=== PATIENT | male | born 1940 | race Caucasian/White ===

== ENCOUNTER → 2017-07-17 | Outpatient (CLI) | payer OTHER ==
[~2017-07-17] MED LIST: ACETYLCYST200 MG/1 M PO; ASPIRIN325 PO; CARVEDILOL25 MG PO; FUROSEMIDE 40 M40 M1 PO; IRON325 PO; K-DUR10 ME1 PO; LANOXIN 0.250.25 M1 PO; LIPITOR80 MG PO; LISINOPRIL10 MG PO; PROAIR HFA8.5 GM INH; SPIRIVA INH; VITAMIN D1000 UNI1 PO
--- NOTE | ~2017-07-17 | 2DMMODE ---
[facility] [email or web address] [address] 2 D/M-MODE ECHOCARDIOGRAM Name: AMY KEBEDE [facility]: [id number] Admission: 07/17/17 Attend Phys: Devonte Connor Discharge: Date of : 36 Date of Service: 07/17/17 1543 Report #: [id number] THIS REPORT FOR: //name// APPROVED REPORT Study performed: 07/17/2017 09:02:11 EXAM: Comprehensive 2D, Doppler, and color-flow Echocardiogram Patient Location: Out-Patient Status: routine BSA: 2.15 HR: 62 bpm BP: 110/66 mmHg Rhythm: Pacemaker Other Information Study Quality: Adequate/limited parasternal window Technically limited study due to lung disease. Indications Congestive Heart Failure Pacemaker CAD Cardiomyopathy 2D Dimensions RVDd: 45.72 mm LVEF(%): 20.06 (>50%) IVSd: 11.12 (7-11mm) LVOT Diam: 21.79 (18-24mm) LVDd: 57.06 mm PWd: 8.08 (7-11mm) Ascending Ao: 33.14 (22-36mm) LVDs: 51.78 (25-40mm) Aortic Root: 33.70 mm Browning's LVEF: 20.06 % Volumes Left Atrial Volume (Systole) Single Plane 4CH: 79.82 mL Single Plane 2CH: 54.25 mL LA ESV Index: 33.00 mL/m2 Aortic Valve AoV Peak Austin.: 1.92 m/s AO Peak Gr.: 14.81 mmHg LVOT Max P.11 mmHg AO Mean Gr.: 6.98 mmHg [facility] [address] [place] [address] 2 D/M-MODE ECHOCARDIOGRAM Name: AMY KEBEDE Room #: [facility]#: [id number] Admission: 07/17/17 Attend Phys: Devonte Connor Discharge: Date of : 36 Date of Service: 07/17/17 1543 Report #: [id number] AO V2 Mean: 1.23 m/s LVOT Max V: 1.13 m/s AO V2 VTI: 38.66 cm AFSHAN Vmax: 2.19 cm2 Mitral Valve E/A Ratio: 0.6 MV Decel. Time: 428.06 ms MV E Max Austin.: 0.54 m/s MV A Austin.: 0.93 m/s MV PHT: 124.14 ms IVRT: 106.11 ms Pulmonary Valve PV Peak Austin.: 1.35 m/s PV Peak Gr.: 7.30 mmHg Pulmonary Vein P Vein S: 0.75 m/s P Vein A: 0.30 m/s P Vein D: 0.44 m/s P Vein A Dur.: 115.3 msec P Vein S/D Ratio: 1.70 Tricuspid Valve TR Peak Austin.: 2.89 m/s RAP Estimate: 5.00 mmHg TR Peak Gr.: 33.46 mmHg Left Ventricle Left ventricle is at the upper limits of normal. There is normal left ventricular wall thickness. Left ventricular systolic function is severely decreased. LVEF is 25%. Mild diastolic dysfunction is present (impaired relaxation pattern). Right Ventricle Right ventricle is mildly dilated. The right ventricular systolic function is normal. Pacemaker lead is present in the right ventricle. Atria Left atrium is mildly dilated. Right atrium is mildly dilated. Aortic Valve The Aortic valve is sclerotic. No aortic regurgitation is present. There is no aortic valvular stenosis. Mitral Valve Mitral valve leaflets are mildly calcified. Mild to moderate mitral regurgitation. No evidence of mitral valve stenosis. [facility] [address] [place] [address] 2 D/M-MODE ECHOCARDIOGRAM Name: AMY KEBEDE Room #: [id number] Admission: 07/17/17 Attend Phys: Devonte Connor Discharge: Date of : 36 Date of Service: 07/17/17 1543 Report #: [id number] Tricuspid Valve The tricuspid valve is normal in structure. Mild tricuspid regurgitation. Estimated PAP is 40mmHg. Pulmonic Valve Pulmonic valve is not well visualized. Mild pulmonic regurgitation. Great Vessels The aortic root is normal in size. The ascending aorta is normal in size. IVC is normal in size and collapses >50% with inspiration. Pericardium There is no pericardial effusion. <Conclusion> Left ventricle is at the upper limits of normal. LVEF is 25%. Right ventricle is mildly dilated. The right ventricular systolic function is normal. Pacemaker lead is present in the right ventricle. Left atrium is mildly dilated. Right atrium is mildly dilated. The Aortic valve is sclerotic. Mitral valve leaflets are mildly calcified. Mild to moderate mitral regurgitation. The tricuspid valve is normal in structure. Mild tricuspid regurgitation. Estimated PAP is 40mmHg. Pulmonic valve is not well visualized. Mild pulmonic regurgitation. There is no pericardial effusion. <ELECTRONICALLY SIGNED> By: Jeramy Rodríguez MD 07/17/17 1543 1543 1543 Jeramy Rodríguez MD /INF
== END ==
LOC: CV 07:32 → RAD 09:40 → CV 09:40
DX: I25.10 Atherosclerotic heart disease of native coronary artery without angina pectoris (principal); E78.5 Hyperlipidemia, unspecified; R09.02 Hypoxemia; Z88.4 Allergy status to anesthetic agent

== ENCOUNTER 2018-07-22 11:55 | Inpatient (IN) | payer OTHER ==
[~2018-07-22] VITALS: Ht 180.3 cm; Wt 102.7 kg
[2018-07-22] VITALS (23 sets, daily range): BP systolic 64–102; BP diastolic 27–81
--- NOTE | ~2018-07-22 | HC ---
[facility] [place] [address] CONSULTATION Name: AMY KEBEDE Room #: 244-P ADM IN M.R.#: [id number] Admission: 07/22/18 ������������������ Attend Phys: Hayder Whitney MD Discharge: ������������������ Date of : 38 Report #: [id number] THIS REPORT FOR: //name// CC: GREG physician/PCP Hayder Whitney DATE OF SERVICE: 07/22/2018 REASON FOR CONSULTATION: Acute hyperkalemia and acute kidney injury on top of chronic kidney disease. HISTORY OF PRESENT ILLNESS: This is an 78-year-old male who has the chronic diagnoses of chronic kidney disease, ischemic cardiomyopathy as well as some COPD. He has an indwelling permanent pacemaker. He is on the medications as listed below. He was due to see one of my partners, Dr. Alcides Bishop, in the office next week, so he went in 2 days ago and has labs drawn. Those labs showed some dramatic abnormalities including a potassium of 7.2 and a creatinine of 5.1. When those came to the lab, he was instructed by Dr. Heart to come to the Emergency Room to have it evaluated. Upon arrival to the Emergency Room today, his creatinine level was up to 6.4, and his potassium level was at 6.9. He was treated for his potassium in the Emergency Room. Since that time, we had a repeat, and it was down to 6.2. Creatinine level is down to 5.7. The patient is a very sketchy historian. He lives alone and is rather lethargic. He says he has been sick for the past 6-7 weeks, dating back to the middle of June. During that time, he has had intermittent nausea, some vomiting and intermittent diarrhea. It sounds like this started as an acute illness as one would expect with a GI viral illness and that started to improve. Subsequent to that, he has had intermittent symptoms. He states he still has intermittent diarrhea as well as the nausea and vomiting. Intake of food and fluids has been diminished. He states he passes urine, maybe, about once a day in the morning. He has had no problem voiding urine and no symptoms to suggest obstruction. He has not been taking any nonsteroidals. He says he is taking all of his other chronic medications. He says he has been weak, unable to carry out many of his usual activities around the house due to weakness. He specifically denies lightheadedness or dizziness. No chest pain or palpitations. He states that he saw both Dr. Rodríguez and Dr. Lamberto Herrera in their respective offices a week or so ago for followup of his chronic problems. He does not recall anything being mentioned of hypotension at that time. He is unaware of fevers, chills or sweats. He has not had recent edema. PAST MEDICAL HISTORY: Longstanding chronic kidney disease stage 3, runs a baseline creatinine in the 1.4-1.6 range. He has ischemic cardiomyopathy with a low ejection fraction in the 30% range. He has the permanent pacemaker. He has some hyperlipidemia. He also has some COPD. HOME MEDICATIONS: Include aspirin 325 mg daily, atorvastatin 80 mg daily, [address] [address] CONSULTATION Name: AMY KEBEDE Room #: 244-P ADM IN M.R.#: [id number] Admission: 07/22/18 ������������������ Attend Phys: Hayder Whitney MD Discharge: ������������������ Date of : 38 Report #: [id number] carvedilol 25 mg b.i.d., furosemide 40 mg daily, Entresto 41/51 mg daily, spironolactone 25 mg daily, Stiolto inhaler, vitamin D 1000 units daily and some iron 325 mg daily. ALLERGIES: TOPICAL LIDOCAINE WHICH CAUSED A RASH. FAMILY HISTORY: Noncontributory. SOCIAL HISTORY: The patient is single, lives in [place], [place]. He is retired. He lives alone in a house. REVIEW OF SYSTEMS: Mainly positive for those symptoms mentioned in the history of present illness. He thinks he has lost some weight, but he has not weighed himself. His appetite has been down as noted above. He had the nausea, vomiting, diarrhea intermittently also as noted above. He reports no dysuria. Urine output is down, says his urine is somewhat dark. He has noticed no hematuria. No flank pain. No pain over the bladder. He has not had recent edema. Denies myalgias, arthralgias. No nonsteroidal use. He is very weak as noted above. PHYSICAL EXAMINATION: GENERAL: Acutely and chronically ill-appearing male, seen in the Intensive Care Unit. VITAL SIGNS: Blood pressure 82/31. As I talked to him it stephanie to about 90/40, heart rate 45 and fully paced. Oxygen saturation 96%, respiratory rate 18. HEENT: Shows pupils are 3 mm and reactive. Sclerae nonicteric. Oral mucosa is parched. NECK: Veins are not distended. No adenopathy, no bruits. CHEST: Clear bilaterally. BACK: Shows no CVA tenderness. CARDIOVASCULAR: Heart has a paced bradycardia, very distant heart tones. ABDOMEN: Has active bowel sounds, is not distended and is nontender, cannot palpate organomegaly or masses. Bladder is not distended by palpation or percussion. EXTREMITIES: Show no peripheral edema. Extremities are warm, absent pedal pulses. PERTINENT LABORATORY DATA: From presentation in the Emergency Room, sodium 137, potassium 6.9, chloride 104, bicarbonate 19, BUN 128, creatinine 6.1, glucose 120, calcium 8.7, phosphorus 6.2, total protein 6.7, albumin 3.4, total bilirubin 0.3, AST of 11, ALT of 24. White count 7.9, hemoglobin 9.7, hematocrit 29.0, platelets 128,000, 73 neutrophils, 12 lymphs, 11 monos, 3 eosinophils. TSH 0.389. Urinalysis, specific gravity of 1.020, pH 5.5, 6-15 white cells, 1-9 bacteria, no blood. I reviewed his chest x-ray, shows some chronic changes about his lung hadley. [facility] [address] [place] [address] CONSULTATION Name: YANDYAMY Room #: 244-P ADM IN .R.#: [id number] Admission: 07/22/18 ������������������ Attend Phys: Hayder Whitney MD Discharge: ������������������ Date of : 38 Report #: [id number] No magi infiltrate that I see. No signs of heart failure at this time. ASSESSMENT: 1. Hyperkalemia, which is critical when he presented. It was treated in the Emergency Room. It started to come down. It should come down further with additional volume replacement and a better blood pressure, improved renal function. At this point, we certainly need to hold his Entresto and his spironolactone as both would be creating problems from a potassium standpoint. Decision to restart those down the line will need to be considered. 2. Acute kidney injury. This is severe. He is very hypotensive on presentation, looks very volume deplete. Again, he is on massive doses of medications as noted above. I suspect he has been hypotensive for some time. What I do not know and we may never know based upon the patient's history is whether all this started 4-6 weeks ago when he had his first symptoms in June and did not seek any medical attention or whether this has been a more recent acute change. It certainly could be a combination of both things with the more long-term changes starting a month or even 6 weeks ago, getting worse again recently. With his profound hypotension, he needs to be off all of his carvedilol, Entresto, furosemide and spironolactone. We have been giving him a fair amount of fluid, and he has gotten about 2 liters so far. I think we can slow down rate, but given some additional IV fluid to get that pressure up. He certainly has no signs of volume overload at this time. 3. Chronic ischemic cardiomyopathy with a low ejection fraction. He saw Dr. Rodríguez and is due for a followup echocardiogram. He certainly could have had a worsening over that time. I would note he has no symptoms suggesting acute ischemic heart changes. 4. Chronic pacemaker. It is running too slow at only 45 beats per minute. It needs to be speeded up by Cardiology. The RN in the ICU reports that Cardiology has been notified. 5. Chronic obstructive pulmonary disease. Oxygenating adequately at this time. PLAN: 1. Hold all medications as noted above. 2. We will continue IV fluids, normal saline at 250 mL an hour overnight. 3. Continue to watch blood pressure closely. 4. Check fractional excretion of sodium. 5. He has trouble voiding. We will check a bladder scanner, but I do not think there is any obstructive component. 6. Follow up labs in the morning. 7. We will follow along closely in the care of this patient. ��������������������������������������������� ���������������������������������������� By: ��������������������������������������������� [phone] Lamberto Bird MD /scott
[2018-07-22 12:36] LABS: URINE BILIRUBIN NEGATIVE (Negative); URINE BLOOD NEGATIVE (Negative); URINE CLARITY CLEAR; URINE COLOR YELLOW; URINE GLUCOSE-RANDOM* NEGATIVE (Negative); URINE KETONES NEGATIVE (Negative); URINE NITRITE-REFLEX NEGATIVE (Negative); URINE PROTEIN (DIPSTICK) NEGATIVE (Negative); URINE UROBILINOGEN 0.2 E.U./dl (0.2-1.0)
[2018-07-22 12:49] LABS: URINE LEUKOCYTES-REFLEX 1+ (Negative)
[2018-07-22 13:02] LABS: BACTERIA-REFLEX 1-9 Few /HPF (None Seen); CASTS None Seen /LPF (None Seen); CRYSTALS None Seen /LPF (None Seen); MUCUS 0-3 Light strn/LPF (None Seen); SQUAMOUS 0-3 Few /LPF (0-3); URINE RBC None Seen /HPF (0-2); URINE WBC-REFLEX 6-15 Few /HPF (0-5)
[2018-07-22 13:08] LABS: HEMOGLOBIN 9.7 gm/dL (14.0-18.0); MCH 32.5 pg (26.0-34.0); MCHC 33.4 g/dL (28.0-37.0); MCV 97.4 fL (80.0-100.0); RBC 2.98 mil/uL (4.50-6.00); RDW 14.1 % (10.5-14.5); WBC 7.9 thou/uL (4.0-11.0)
[2018-07-22 13:23] LABS: ALBUMIN 3.4 g/dL (3.4-5.0); CALCIUM 8.7 mg/dL (8.5-10.1); CREATININE 6.1 mg/dL (0.7-1.3); DIRECT BILIRUBIN 0.1 mg/dL (<0.1-0.3); MAGNESIUM 1.9 mg/dL (1.8-2.4); PHOSPHORUS 6.2 mg/dL (2.5-4.9); TOTAL BILIRUBIN 0.3 mg/dL (<0.1-1.0); TOTAL PROTEIN 6.7 g/dL (6.4-8.2)
[2018-07-22 13:28] LABS: POTASSIUM 6.9 mmol/L (3.5-5.1)
[2018-07-22 13:30] LABS: ABSOLUTE NEUTROPHILS 5.8 thou/uL (1.4-8.2); ANISOCYTOSIS 1+; BURR CELLS FEW; LARGE PLATELETS OCCASIONAL; OVALOCYTES 1+; PLATELET ESTIMATE NORMAL; POIKILOCYTOSIS 1+
[2018-07-22 13:31] LABS: PLATELET COUNT 128 thou/uL (150-400)
[2018-07-22 15:09] LABS: ALBUMIN 3.3 g/dL (3.4-5.0); CALCIUM 8.7 mg/dL (8.5-10.1); CREATININE 6.4 mg/dL (0.7-1.3); PHOSPHORUS 6.4 mg/dL (2.5-4.9)
[2018-07-22 15:15] LABS: POTASSIUM 6.9 mmol/L (3.5-5.1)
[2018-07-22] MEDS ORDERED: ENTRESTO 49 MG1 EACH PO (15:25)
[2018-07-22] MEDS ORDERED: STIOLTO RESPIMAT4 GM INH (15:25)
[2018-07-22] MEDS ORDERED: SPIRONOLACTONE25 MG PO (15:27)
[2018-07-22 15:37] LABS: TSH 0.389 uIU/mL (0.358-3.740)
[2018-07-22 17:05] LABS: CALCIUM 8.6 mg/dL (8.5-10.1); CREATININE 5.7 mg/dL (0.7-1.3)
[2018-07-22 17:07] LABS: POTASSIUM 6.2 mmol/L (3.5-5.1)
--- NOTE | 2018-07-22 17:19 | EKG ---
[place] [address] [email or web address] [place] [address] ELECTROCARDIOGRAM REPORT Name: AMY KEBEDE Room #: 170-10 ADM IN M.R.#: [id number] ������������������ Admission: 07/22/18 ������������������ Attend Phys: Hayder Whitney MD Discharge: ������������������ Date of : 36 Report #: [id number] ����������������������������������������������������������������� [id number] THIS REPORT FOR: //name// [facility] ED Test Date: 2018-07-22 Test Time: 12:39:49 Pat Name: AMY KEBEDE Department: Room: 170 Gender: M Respiratory Physician: PHILIPPE : 1940 Requested By: Vimal Tapia Order Number: [id number] MD: Angel Hodges Measurements Intervals [place] Rate: 45 P: HI: QRS: -67 QRSD: 186 T: 129 QT: 486 QTc: 421 Interpretive Statements Afib/flutter and ventricular-paced rhythm No further analysis attempted due to paced rhythm No previous ECGs available for comparison Electronically Signed On 07-22-2018 17:19:23 CDT by Angel Hodges [email or web address] ��������������������������������������������� <ELECTRONICALLY SIGNED> ���������������������������������������� By: Angel Hodges MD, [facility] ��������������������������������������������� 07/22/18 1719 1239 1239 Angel Hodges MD, FACC /EPI
--- NOTE | 2018-07-22 19:17 | NUR ---
PATIENT ADMITTED FROM ER DEPARTMENT. ALERT AND ORIENTED X4, NO COMPLAINTS OF PAIN. HARD OF HEARING. ON ROOM AIR, WEARS 4L AT NIGHT. UP WITH MINIMAL ASSISTANCE. SINUS BRADYCARDIA/PACED ON PRODUCTION SUPERVISOR TRAINEE. BLOOD PRESSURE SYSTOLICLY 60'S, DR. [place] NOTIFIED, NEW ORDERS RECIEVED. PATIENT UPDATED ON THE PLAN OF CARE. NO SIGNS OF ACUTE DISTRESS NOTED AT THIS TIME. WILL CONTINUE TO MONITOR.
[2018-07-22 23:13] LABS: URINE CREATININE-RANDOM* 146.6 mg/dL
[2018-07-23] VITALS (31 sets, daily range): BP systolic 72–134; BP diastolic 22–101
[2018-07-23 05:18] LABS: HEMATOCRIT 26.6 % (42.0-52.0); HEMOGLOBIN 8.6 gm/dL (14.0-18.0); MCH 31.7 pg (26.0-34.0); MCHC 32.2 g/dL (28.0-37.0); MCV 98.4 fL (80.0-100.0); PLATELET COUNT 106 thou/uL (150-400); RDW 14.2 % (10.5-14.5); WBC 6.5 thou/uL (4.0-11.0)
[2018-07-23 05:28] LABS: ALBUMIN 2.5 g/dL (3.4-5.0); CALCIUM 8.2 mg/dL (8.5-10.1); MAGNESIUM 1.6 mg/dL (1.8-2.4); PHOSPHORUS 5.7 mg/dL (2.5-4.9)
[2018-07-23 05:33] LABS: POTASSIUM 6.3 mmol/L (3.5-5.1)
[2018-07-23 06:13] LABS: ABSOLUTE NEUTROPHILS 4.7 thou/uL (1.4-8.2)
[2018-07-23 06:16] LABS: ANISOCYTOSIS 1+; LARGE PLATELETS FEW; PLATELET ESTIMATE DECREASED; POLYCHROMASIA 1+
--- NOTE | 2018-07-23 06:29 | NUR ---
PT AOX4. ON 4L NC AT NIGHT. DENIES SOA. DENIES PAIN. BP ON THE LOW SIDE, DR. SUMMERS AWARE. AFEBRILE. VPACED ON THE MONITOR. SOTO PLACE, PT RETAINING URINE. CRITICAL POTASSUIM COMMUNICATED TO DR. LOVE. NO COMPLAINS PRESENTLY. WILL CONTINUE TO MONITOR.
--- NOTE | 2018-07-23 16:53 | NUR ---
met with patient who is A/Ox4. reports he lives alone in home all needs on one level. Patient admits with abnormal labs. He reports he has no PCP. He does see Dr Bishop nephrology. He reports no family or assistance. His emergency contact is his neighbor. He is unsure if his neighbor knows he is here at hospital. He does not think number is correct as given. He reports his cell phone at home. Patient may benefit from care at nm. Patient reports increase weakness since Jun and requested his neighbor help with grocery shopping. 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 He has a cane to use as needed. He reports nocturnal oxygen 4 liters at home serviced by [employer] [place]. Therapy evals in process casemgt following.
--- NOTE | 2018-07-23 18:01 | EKG ---
[address] [place] [address] ELECTROCARDIOGRAM REPORT Name: AMY KEBEDE Room #: 244- ADM IN M.R.#: [id number] ������������������ Admission: 07/22/18 ������������������ Attend Phys: Hayder Whitney MD Discharge: ������������������ Date of : 38 Report #: [id number] ����������������������������������������������������������������� [id number] THIS REPORT FOR: //name// [facility] Test Date: 2018-07-23 Test Time: 07:37:35 Pat Name: AMY KEBEDE Department: Room: 244 Gender: M Displayer Merchandise: DEANDRE : 1940 Requested By: Hayder Whitney Order Number: [id number] MD: Angel Hodges Measurements Intervals [place] Rate: 45 P: 0 NH: 48 QRS: -78 QRSD: 169 T: 121 QT: 487 QTc: 422 Interpretive Statements Ventricular-paced rhythm No further analysis attempted due to paced rhythm Compared to ECG 07/22/2018 12:39:49 no significant change was found Electronically Signed On 07-23-2018 18:01:10 CDT by Angel Hodges [email or web address] ��������������������������������������������� <ELECTRONICALLY SIGNED> ���������������������������������������� By: Angel Hodges MD, [facility] ��������������������������������������������� 07/23/18 180 6 6 Angel Hodges MD, [facility] /EPI
--- NOTE | 2018-07-23 18:35 | NUR ---
PATIENT ALERT AND ORIENTED X4, NO COMPLAINTS OF PAIN. ON ROOM AIR. PACED ON INVERTER AND CLIPPER. TOLERATING DIET WELL. SOTO PATENT AND DRAINING. PLAN OF CARE DISCUSSED WITH PATIENT, VERBALIZED UNDERSTANDING. NO SIGNS OF ACUTE DISTRESS NOTED AT THIS TIME. WILL CONTINUE TO MONITOR.
[2018-07-24] VITALS (24 sets, daily range): BP systolic 72–105; BP diastolic 21–56
--- NOTE | 2018-07-24 05:36 | NUR ---
PT AOX4. 4L O2 NC, AT HS. NO PAIN. SOTO IN PLACE, OUTPUT NOTED. IV FLUIDS INFUSING. VTACH ON MONITOR. BP LOW DURING THE NIGHTS, PHYSICIANS AWARE. WILL CONTINUE TO MONITOR. PT SLOWLY PROGRESSING TOWARDS GOALS.
[2018-07-24 07:29] LABS: ALBUMIN 2.5 g/dL (3.4-5.0); CALCIUM 7.9 mg/dL (8.5-10.1); PHOSPHORUS 5.1 mg/dL (2.5-4.9); POTASSIUM 5.8 mmol/L (3.5-5.1)
[2018-07-24 07:32] LABS: CREATININE 3.6 mg/dL (0.7-1.3)
[2018-07-25] VITALS (24 sets, daily range): BP systolic 80–107; BP diastolic 32–84
[2018-07-25 05:01] LABS: ALBUMIN 2.2 g/dL (3.4-5.0); CALCIUM 7.9 mg/dL (8.5-10.1); CREATININE 2.9 mg/dL (0.7-1.3); PHOSPHORUS 4.4 mg/dL (2.5-4.9); POTASSIUM 5.5 mmol/L (3.5-5.1)
--- NOTE | 2018-07-25 08:05 | NUR ---
END OF SHIFT SUMMARY: Pt slowly progressing toward goals. Had very restful night; monitor remained primarily V-paced at 60, occasionally AV paced. Pt on 4 liter nasal canula, sat remained > 95%. No c/o of SOA until early this a.m. around 0630, sat still remained > 95% but pt slightly more tachypnic in mid 20's. Urine output adequate.
[2018-07-25 12:17] LABS: BE(vivo) -14.2 mmol/L (-2 to +3); HCO3 15.3 mmol/L (22.0-26.0); PCO2 51.9 mmHg (35.0-45.0); PO2 149.3 mmHg (80.0-100.0)
[2018-07-25 12:18] LABS: pH 7.087 (7.360-7.450)
[2018-07-25 15:37] LABS: BE(vivo) -13.8 mmol/L (-2 to +3); HCO3 14.1 mmol/L (22.0-26.0); PCO2 40.7 mmHg (35.0-45.0); PO2 130.4 mmHg (80.0-100.0); sO2 97.8 % (92.0-98.0)
[2018-07-25 15:38] LABS: pH 7.158 (7.360-7.450)
--- NOTE | 2018-07-25 17:03 | NUR ---
SUMMARY: PATIENT ALERT AND ORIENTED. VITALS STABLE AND HAS DENIED PAIN. UP TO THE CHAIR EARLIER TODAY. SHORTNESS OF AIR WITH ACTIVITY AND AT TIMES MARGINALLY HYPOTENSIVE. ABG RESULTS CALLED TO DR. SCHOFIELD THIS AFTERNOON, ORDERS RECEIVED FOR BIPAP AND PULMONARY CONSULT. STARTED ON BICARB GTT. WILL CONTINUE TO MONITOR.
--- NOTE | 2018-07-25 18:23 | NUR ---
PATIENT AWAKENED FROM NAP THIS EVENING, RIPPED BIPAP OFF HIS FACE, RT TRIED TO PUT IT BACK ON BUT PATIENT REFUSED, ALSO REFUSED NASAL CANNULA. I TRIED TO TALK PATIENT IN USING O2 BUT REFUSED. DR. ALEGRIA CAME BY AND TALKED WITH PATIENT BUT PATIENT STILL DID NOT WANT ANY O2, SATURATIONS 92-94% ON ROOM AIR. DR. ALEGRIA ORDERED ONE DOSE OF HALDOL AND WAS OK TO GIVE PATIENT BREAK FROM BIPAP AND CANNULA. PATIENT REFUSED DINNER. FELL ASLEEP AFTER DOSE OF HALDOL.
[2018-07-26] VITALS (15 sets, daily range): BP systolic 88–123; BP diastolic 33–66
[2018-07-26 05:21] LABS: HEMATOCRIT 29.8 % (42.0-52.0); HEMOGLOBIN 9.8 gm/dL (14.0-18.0); MCH 32.5 pg (26.0-34.0); MCV 98.5 fL (80.0-100.0); RBC 3.03 mil/uL (4.50-6.00); RDW 14.9 % (10.5-14.5); WBC 5.8 thou/uL (4.0-11.0)
--- NOTE | 2018-07-26 05:28 | NUR ---
PT HAS RESTED OFF AN ON THROUGHOUT THE SHIFT. PT RHYTHM IRREGULAR. AT TIMES VPACED AT RATE 60 OTHER TIMES WILL APPEAR 120S THEN ALSO 30S, VERY INCONSISTENT. WILL PLACE CALL TO LAYBOY OPERATOR ALEXANDRA KELLY TO DISCUSS. PT RADIAL PULSE CHECK CONFIRMS LOW 60S. PT PURSED LIP BREATHING AT TIMES WAS COOPERATIVE TO RECEIVING 2 RT TREATMENTS DURING THIS SHIFT BUT STILL REFUSING TO WEAR OXYGEN OR PUT BIPAP ON CURRENT O2 SAT 94%. PT AM LABS DRAWN AND PENDING RESULT TO REVIEW. PT CONTINUES WITH BICARB GTT. PT AFEBRILE. PT HAS HAD A WEIGHT GAIN OF ABOUT 10 LBS SINCE YESTERDAY AND IS MORE EDEMATOUS.
[2018-07-26 05:42] LABS: ALBUMIN 2.4 g/dL (3.4-5.0); CALCIUM 8.4 mg/dL (8.5-10.1); CREATININE 2.6 mg/dL (0.7-1.3); PHOSPHORUS 3.2 mg/dL (2.5-4.9); POTASSIUM 5.3 mmol/L (3.5-5.1)
--- NOTE | 2018-07-26 06:31 | NUR ---
SPOKE TO ALEXANDRA KELLY REGARDING PACER IRREGULARITY AND PT WT GAIN AND SOUNDING COARSE, PT BRINGING UP SPUTUM. SHE LOOKED OVER NOTES WHILE ON THE PHONE AND SAID TO HAVE DAY SHIFT RN TALK TO RENAL AND CARDIOLOGY WHEN THEY ROUND ON PT TODAY TO DETERMINE FURTHER PLAN OF ACTION FOR PT. PT HAS BEEN ASYMPTOMATIC WITH PACER IRREGULARITY AND DOES NOT MATCH UP TO RADIAL PULSE PALPATED.
--- NOTE | 2018-07-26 08:30 | NUR ---
PT ALERT AND ORIENTED X4, INCREASINGLY SHORT OF BREATH AT REST, DISCUSSED WITH PT GOALS OF CARE AND CODE STATUS. PT WISHES TO BE A NO CODE. TANI RN SECOND NURSE TO VERIFY THAT PT IS ALERT AND ORIENTED X4 AND CURRENT CODE WISHES. PATIENT PROVIDED A LIST OF NAMES AND PERSONS TO NOTIFY IF HE BECOMES UNRESPONSIVE OR . PT REPORTS NO IMMEDIATE FAMILY. THIS LIST IS LOCATED IN PATIENTS CHART. DR. SCHOFIELD PAGECompa FOR DNR ORDERS, REPORTED PT NEURO STATUS AND NO CODE WISHES. RECIEVED ORDERS VIA TELEPHONE- NO CODE.
[2018-07-27] VITALS (10 sets, daily range): BP systolic 90–113; BP diastolic 46–81
--- NOTE | 2018-07-27 04:40 | NUR ---
PT CURRENTLY RESTING COMFORTABLE IN BED. ABLE TO GET SOME GOOD SLEEP THIS SHIFT. PT REQUIRED ONE DOSE OF PAIN MEDICATION DURING THE NIGHT. PT CONTINUES ON 4L NC SATS >93% PT HAS HAD A FEW BREATHING TREATMENTS THROUGHOUT SHIFT. PT AM LABS TO BE DRAWN.
[2018-07-27 06:08] LABS: ALBUMIN 2.9 g/dL (3.4-5.0); CALCIUM 8.6 mg/dL (8.5-10.1)
--- NOTE | 2018-07-27 10:44 | NUR ---
FOLLOWING FOR DC PLANNING. CLINICAL INFO REVIEWED AND DISCUSSED WITH DR. SCHOFIELD WHO STATES HE TALKED TO PT ABOUT HIS CONDITION AND PT IS AGREEABLE TO STOPPING AGGRESSIVE TREATMENT. MET WITH PT WHO IS ALERT AND ORIENTED X4. REVIEWED HOSPITLAIZATION AND TREATMENT. PT CONFIRMS DISCUSSION WITH DR. SCHOFIELD DIRECTIVE FOR DNR NOW. DISCUSSED HOSPICE PHILOSOPHY OF CARE AND PTS BENEFITS. PT IS AGREEABLE TO HOSPICE EVAL WITH HOSPICE AGENCY THAT HAS INPT CAPABILITY. REVIEWED [facility], [facility] AND PT CHOSE HOSPICE. COMPLETED OUTSIDE HOSPITAL DNR FORM WITH PT AND REFERRAL FAXAED TO HOSPICE AND CASANDRA FISH WILL BE HERE AT NOON TO EVAL AND MEET WITH PT.
--- NOTE | 2018-07-27 17:10 | NUR ---
PATIENT ALERT AND ORIENTED X4, NO COMPLAINTS OF PAIN. ON 4L NASAL CANNULA, SHORTNESS OF BREATH WITH INCREASED ACTIVITY. PACED ON DELIVERY STOCK CLERK. SOTO PATENT, ON IV LASIX DRIP. PATIENT UPDATED ON THE PLAN OF CARE. NO SIGNS OF ACUTE DISTRESS NOTED AT THIS TIME. WILL CONTINUE TO MONITOR.
--- NOTE | 2018-07-27 19:27 | NUR ---
REPORT CALLED TO ONCOMING NURSE ON , AWAITING TRANSPORT.
--- NOTE | 2018-07-27 20:15 | NUR ---
Pt remain stable. Left IVU via bed, monitors and transported by me to room 452. All belonging are sent to his room. I have attempted to notify his authorize account contact associate regarding of this pt w/o any success. Phone number that he provided was incorrect. Notify his nurse on regarding of above.
[2018-07-28 03:36] VITALS: BP 98/66
--- NOTE | 2018-07-28 04:28 | NUR ---
Pt. was an icu transfer at the beginning of the shift. He has rested quietly and offers no complaints. Continues on lasix gtt with adequate urinary output. Has bilateral lower and upper extremity edema. He offers no c/o shortness of air. Bed alarm is on.
[2018-07-28 06:23] LABS: ALBUMIN 2.9 g/dL (3.4-5.0); CALCIUM 8.8 mg/dL (8.5-10.1); PHOSPHORUS 4.8 mg/dL (2.5-4.9); POTASSIUM 5.9 mmol/L (3.5-5.1)
[2018-07-28 08:28] VITALS: BP 93/55
[2018-07-28] MEDS ORDERED: VELTASSA8.4 GM PO (12:16)
[2018-07-28] MEDS ORDERED: LASIX 40 MG TAB40 M2 PO ×2 (12:25→13:03)
[2018-07-28 15:26] VITALS: BP 96/60
--- NOTE | 2018-07-28 15:26 | NUR ---
[place] WITH HOSPICE VISITED WITH PT THIS MORNING AND INDICATED THAT PT WAS APPROPRIATE FOR ADMISSION FOR HOSPICE HOUSE THIS DAY. OUTSIDE THE HOSPITAL DNR FORM WAS COMPLETED. COMPANY WAS CONTACTED TO DEACTIVATE PT'S PACEMAKER. [facility] TRANSPORT WAS ARRANGED FOR 1630. CM CALLED AND NOTIFIED KB AT THE HOSPICE HOUSE. PT IS AWARE AND AGREEABLE. NURSE IS TO CALL REPORT. NO OTHER CM INTERVENTION INDICATED AT THIS TIME. CASE CLOSED.
--- NOTE | 2018-07-28 17:34 | NUR ---
PT STABLE THROUGHOUT SHIFT. PT DISCHARGED TO HOSPICE. REPORT CALLED, PT LEFT UNIT VIA FD.
== END 2018-07-28 18:00 | disposition hospice, home (50) | DRG 682 ==
LOC: ER 11:55 → ICU 14:09 → EROBS 14:09 → 4W 14:09 → ICU 17:23 → 4W 07-27 20:25
PROVIDERS: Emergency Medicine; Hospitalist; Internal Medicine Nephrology; Nurse Practitioner; ADMIT Internal Medicine
PROC: 5A09357 Assistance with Respiratory Ventilation, Less than 24 Consecutive Hours, Continuous Positive Airway Pressure (ICD-10-PCS; principal; 2018-07-25)
DX: N17.9 Acute kidney failure, unspecified (principal); J96.21 Acute and chronic respiratory failure with hypoxia; I50.23 Acute on chronic systolic (congestive) heart failure; I38 Endocarditis, valve unspecified; I13.2 Hypertensive heart and chronic kidney disease with heart failure and with stage 5 chronic kidney disease, or end stage renal disease; E87.5 Hyperkalemia; E78.5 Hyperlipidemia, unspecified; I25.5 Ischemic cardiomyopathy; J44.9 Chronic obstructive pulmonary disease, unspecified; I25.10 Atherosclerotic heart disease of native coronary artery without angina pectoris; F17.210 Nicotine dependence, cigarettes, uncomplicated; Z66 Do not resuscitate; N18.6 End stage renal disease; R00.1 Bradycardia, unspecified; E86.9 Volume depletion, unspecified; I95.9 Hypotension, unspecified; D63.8 Anemia in other chronic diseases classified elsewhere; Z99.81 Dependence on supplemental oxygen; Z95.810 Presence of automatic (implantable) cardiac defibrillator; Z88.8 Allergy status to other drugs, medicaments and biological substances; Z98.42 Cataract extraction status, left eye; Z98.41 Cataract extraction status, right eye; Z79.82 Long term (current) use of aspirin; Z79.899 Other long term (current) drug therapy
CPT/HCPCS: 10045; 10047; 10078